=== PATIENT | female | born 1980 | race Caucasian/White ===

== ENCOUNTER 2018-07-12 20:33 | Emergency (ER) | payer OTHER ==
[~2018-07-12] VITALS: Ht 162.6 cm; Wt 84.1 kg
[2018-07-12 20:38] VITALS: Ht 162.6 cm; Wt 84.1 kg
[2018-07-12] MEDS ORDERED: SOD CHLORIDE 0.9% 1,000 ML IV STA (20:53)
[2018-07-12] MEDS ORDERED: ONDANSETRON 4 MG INJ IV STA (21:42)
[2018-07-12] MEDS ORDERED: morphine 4 MG/ML VIAL IV STA (21:42)
--- NOTE | 2018-07-12 22:01 | ERD ---
ER Documentation Chief Complaint Chief Complaint BIBA RA90,c/o AP,diarrhea & vomiting HPI 37-year-old female brought in by ambulance for abdominal pain with associated nausea, vomiting, and diarrhea. Her pain started suddenly this afternoon. She complains of epigastric and right upper quadrant aching pain, with occasional cramping, 7 out of 10. Pain radiates all over her abdomen. No associated fever, chills, chest pain, shortness of breath, dysuria or hematuria. No sick contacts. No recent travel. No recent antibiotics. ROS All systems reviewed and are negative except as per history of present illness. Medications Home Meds Active Scripts Loperamide Hcl* (Imodium*) 2 Mg Capsule, 2 MG PO .AFTER EA LOOSE BM PRN for DIARRHEA, #10 TAB Prov:DONAL MONROE MD 07/12/18 Ondansetron (Ondansetron Odt) 4 Mg Tab.rapdis, 4-8 MG PO Q6H PRN for NAUSEA AND/OR VOMITING, #10 TAB Prov:DONAL MONROE MD 07/12/18 Allergies Allergies: Coded Allergies: No Known Allergy (Unverified , 07/12/18) PMhx/Soc Medical and Surgical Hx: pt denies Medical Hx, pt denies Surgical Hx Hx Psychiatric Problems: No Hx Miscellaneous Medical Probl: No Hx Alcohol Use: No Hx Substance Use: No Hx Tobacco Use: No Smoking Status: Never smoker FmHx Family History: No diabetes Physical Exam Vitals Vital Signs Date Temp Pulse Resp B/P (MAP) Pulse Ox O2 O2 Flow FiO2 Time Delivery Rate 07/12/18 99.0 60 18 108/46 98 20:38 (66) Physical Exam Const: Mild distress secondary to pain, nontoxic Head: Atraumatic Eyes: Normal Conjunctiva ENT: Normal External Ears, Nose and Mouth. Neck: Full range of motion. No meningismus. Resp: Clear to auscultation bilaterally Cardio: Regular rate and rhythm, no murmurs Abd: Soft, mild epigastric and right upper quadrant tenderness to palpation with no rebound or guarding, non distended. Normal bowel sounds Skin: No petechiae or rashes Back: No midline or flank tenderness Ext: No cyanosis, or edema Neur: Awake and alert Psych: Normal Mood and Affect Result Diagram: 07/12/18211907/12/182119 Results 24 hrs Laboratory Tests Test 07/12/18 21:20 White Blood Count 16.8 10^3/ul Red Blood Count 3.95 10^6/ul Hemoglobin 11.9 g/dl Hematocrit 36.3 % Mean Corpuscular Volume 91.9 fl Mean Corpuscular Hemoglobin 30.1 pg Mean Corpuscular Hemoglobin Concent 32.8 g/dl Red Cell Distribution Width 12.4 % Platelet Count 336 10^3/UL Mean Platelet Volume 8.8 fl Immature Granulocytes % 0.400 % Neutrophils % 77.4 % Lymphocytes % 13.2 % Monocytes % 8.2 % Eosinophils % 0.6 % Basophils % 0.2 % Nucleated Red Blood Cells % 0.0 /100WBC Immature Granulocytes # 0.070 10^3/ul Neutrophils # 13.0 10^3/ul Lymphocytes # 2.2 10^3/ul Monocytes # 1.4 10^3/ul Eosinophils # 0.1 10^3/ul Basophils # 0.0 10^3/ul Nucleated Red Blood Cells # 0.0 10^3/ul Urine Color YELLOW Urine Clarity CLEAR Urine pH 5.0 Urine Specific [place] 1.031 Urine Ketones 2+ mg/dL Urine Nitrite NEGATIVE mg/dL Urine Bilirubin NEGATIVE mg/dL Urine Urobilinogen NEGATIVE mg/dL Urine Leukocyte Esterase NEGATIVE [place]/ul Urine Microscopic RBC 2 /HPF Urine Microscopic WBC 1 /HPF Urine Bacteria FEW /HPF Urine Mucus FEW /HPF Urine Hemoglobin NEGATIVE mg/dL Urine Glucose NEGATIVE mg/dL Urine Total Protein 2+ mg/dl Sodium Level 141 mmol/L Potassium Level 3.5 mmol/L Chloride Level 105 mmol/L Carbon Dioxide Level 24 mmol/L Anion Gap 12 Blood Urea Nitrogen 19 mg/dl Creatinine 0.59 mg/dl Est Glomerular Filtrat Rate mL/min > 60 mL/min Glucose Level 90 mg/dl Calcium Level 9.0 mg/dl Total Bilirubin 0.0 mg/dl Direct Bilirubin 0.00 mg/dl Indirect Bilirubin 0.0 mg/dl Aspartate Amino Transf (AST/SGOT) 37 IU/L Alanine Aminotransferase (ALT/SGPT) 24 IU/L Alkaline Phosphatase 64 IU/L Total Protein 7.6 g/dl Albumin 4.1 g/dl Globulin 3.50 g/dl Albumin/Globulin Ratio 1.17 Lipase 155 U/L Serum HCG, Qualitative NEGATIVE Current Medications Medications Dose Sig/Louise Start Time Status Last (Trade) Ordered Route PRN Stop Time Admin Dose Reason Admin Sodium 1,000 ml @ Q1H STAT 07/12/18 DC 07/12/18 Chloride 1,000 mls/hr IV 20:53 21:27 07/12/18 21:52 Morphine 4 mg ONCE STAT 07/12/18 DC 07/12/18 Sulfate IV 21:42 22:09 (morphine) 07/12/18 21:43 Ondansetron 4 mg ONCE STAT 07/12/18 DC 07/12/18 HCl (Zofran IV 21:42 22:09 Inj) 07/12/18 21:43 Procedures/MDM EMERGENT LABS AND DIAGNOSTIC STUDIES: Lab Results above were reviewed and interpreted by me. CBC: Mild leukocytosis, possibly stress response versus due to infection. CMP: No evidence of electrolyte abnormality, renal failure, hypoglycemia, liver failure, or biliary obstruction Lipase: no evidence of pancreatitis UA: 2+ ketones, no evidence of infection Radiology Results as interpreted by Radiology below were reviewed by Eugenia Monroe MD: Ultrasound right upper quadrant shows no acute abnormalities Initial Nursing notes reviewed. Previous Medical Records requested via the Electronic Health Record. EMERGENCY DEPARTMENT COURSE / MEDICAL DECISION MAKING: Patient was initially treated with IV fluids, antiemetics, and analgesics. Labs did not show any significant abnormalities other than leukocytosis, likely secondary to infection. I doubt acute surgical abdomen. Suspect acute gastroenteritis, likely viral in etiology. Patient symptoms have significantly improved while she is here. Repeat abdominal exam is benign. I feel the patient is stable for discharge with continued outpatient follow-up. Prescription for Zofran and Imodium given. Return precautions discussed. If no improvement in 12-24 hours or any worsening within 8-12 hours, instructed to return for reevaluation. Departure Diagnosis: Primary Impression: Nausea, vomiting and diarrhea Additional Impression: Abdominal pain Abdominal location: epigastric Qualified Codes: R10.13 - Epigastric pain Condition: Stable DONAL MONROE MD Jul 12, 2018 22:01
[2018-07-12] MEDS ORDERED: LOPE2CAP PO (22:25)
[2018-07-12] MEDS ORDERED: ONDA4TAB14 PO (22:25)
[2018-07-13] VITALS: BP 111/60; PULSE 68; RESP 18
== END 2018-07-13 00:48 | disposition home or self-care (01) ==
LOC: E/R 20:33
DX: R11.2 Nausea with vomiting, unspecified (principal); R19.7 Diarrhea, unspecified; R10.13 Epigastric pain; R40.2142 Coma scale, eyes open, spontaneous, at arrival to emergency department; R40.2252 Coma scale, best verbal response, oriented, at arrival to emergency department; R40.2362 Coma scale, best motor response, obeys commands, at arrival to emergency department
CPT/HCPCS: 36415; 76705; 80053; 81001; 83690; 84703; 85025; 96374; 96375; 99285; J2270; J2405; J7030